=== PATIENT | male | born 1975 | race Caucasian/White ===

== ENCOUNTER 2024-01-10 05:13 | Inpatient (IN) | payer OTHER, SELFPAY ==
[2024-01-09 23:56] VITALS: BP 170/102
[2024-01-10 00:24] VITALS: BMI 31.1
--- NOTE | 2024-01-10 00:30 | ED.GENMED ---
History of Present Illness
General
Chief Complaint: Swelling
Source: patient
Exam Limitations: none
Time Seen by Provider: 01/10/24 00:09
Nursing documentation reviewed up to this point in time: agreed with
Travel History
Have you had any contact with someone who has COVID-19?: No
Do you have any symptoms of coronavirus? Fever > 100 degrees, chills, cough, shortness of breath, sore throat, loss of taste or smell, muscle aches, or headache?: No
History of Present Illness
History of Present Illness:
Patient states he had 2 dental extractions ot left lower jaw 1.5 months ago. 2 weeks ago he developed swelling to left lower jaw. He was evaluated by his oral surgeon who did not feel this was related to his recent surgery. Advised to follow up
with ENT. He has not been able to get an appointment for ENT. Came to ED for eval. He denies fever/chills, n/v/d. No difficulty breathing or swallowing. No prior history of same.
Past History
Past History
ED Past Medical History: HTN
ED Past Surgical History: Other (recent dental extractions)
Review of Systems
Review of Systems
Allergies reviewed?: Yes
All Other Systems: ROS reviewed and negative except as documented in HPI and ROS
Constitutional: Reports no symptoms
EENT: Reports other (Swelling to left lower jaw. No trismus. )
Respiratory: Reports no symptoms
Cardiac: Reports no symptoms
ABD/GI: Reports no symptoms
: Reports no symptoms
Musculoskeletal: Reports no symptoms
Skin: Reports other (swelling to left lower jaw)
Neurological: Reports no symptoms
Psychiatric: Reports no symptoms
Phy Exam
General Physical Exam
General Presentation: well appearing
General age: appears stated age
General Skin: warm and dry
General Habitus: normal
General Mental: alert
ENT Exam
ENT Exam: EOMI, TM's normal, pharynx normal, swallowing well and other (Large area of swelling left lower jaw, Parotitis vs abscess)
Musculoskeletal Exam
Musculoskeletal Exam: full ROM and neuro vasc intact
Skin Exam
Skin Exam: normal color, warm/dry, no rash and other (Large area of swelling left lower jaw)
Psychiatric Exam
Psychiatric Exam: normal mood/affect
Scores
Heart Failure Risk
Heart Failure Risk Score: Not Applicable
Course
Orders/Labs/Results
Orders:
Orders
01/10/24 00:[address] [[address] Neck With Iv Contrast] Urgent
Comment:
Reason For Exam: swelling, pain left lower jaw
01/10/24 00:32
Complete Blood Count/With Diff Urgent
Comprehensive Metabolic Panel Urgent
01/10/24 02:47
Clindamycin 600 mg/50 ml [Cleocin] 600 mg in 50 ml IV NOW
01/10/24 03:04
Clindamycin 600 mg/50 ml [Cleocin] 600 mg in 50 ml IV NOW
01/10/24 05:02
Admit/Transfer Patient As Directed
Co-Sign Provider:
Level of Care: Inpatient admission
Assign to:: Medical/Surgical
Physician / Group: Dr. Francisco
Diagnosis: Left suppurative parotitis
Reason for Hospitalization: Patient with left jaw swelling and pain and found to have a parotid abscess.
Expected length of stay greater than two midnights?: Yes
ELOS- Estimated Length of Stay in days: 2
I certify the patient meets the requirements for IP care: Yes
01/10/24 05:03
Code Status As Directed
Resuscitation Status: Full Code
01/10/24 05:05
ENT CONSULT Routine
Consulting Provider: Dudley Belle
Was physician already notified: No
Reason for Consult: Parotitis with left parotid abscess eval
01/10/24 05:06
Consult Notification Routine
Specialty to Notify: ENT
Date consulting provider notified: 01/10/24
Time consulting provider notified: 07:02
Notified:: Provider
Comment: TT
Ketorolac [Toradol] 15 mg IV Q6HPRN PRN
Morphine Sulfate 2 mg IV Q4HPRN PRN
01/10/24 05:09
HydrALAZINE [Apresoline] 10 mg IV Q6HPRN PRN
01/10/24 05:15
0.9% Sodium Chloride 1000 ml [Nss] 1,000 ml IV 100 mls/hr
01/10/24 05:41
Blood Culture Q30M
EUGENIO Source: Blood/Venous
Specimen Description:
MRSA Screen Routine
EUGENIO Source: Nose
Specimen Description:
01/10/24 05:54
Blood Culture Q30M
EUGENIO Source: Blood/Venous
Specimen Description:
01/10/24 Breakfast
NPO
Allow oral meds: Yes
Allow clear liquids: No
Ampicillin/Sulbactam 3 G [Unasyn] 3 gm 0.9% Sodium Chloride 100 ml [Nss] 100 ml IV Q6H
01/10/24 06:25
Bisacodyl [Dulcolax] 10 mg RECTAL [id number] PRN
Docusate W/Senna [Senokot-S] 1 tablet PO BIDPRN PRN
Polyethylene Glycol Powder [Miralax] 17 grams PO DAILYPRN PRN
01/10/24 06:25
Activity As Directed
Activity Level: Out of Bed-Early Mobility
Pneumatic Compression Sleeves As Directed
Type: Knee high
Vital Signs As Directed
Frequency: Per unit guidelines
DX Deep Vein Thrombosis Video Routine
01/10/24 07:37
Basic Metabolic Panel Routine
Complete Blood Count/With Diff Routine
Abnormal Lab Results
01/10/24
00:32
WBC 11.9 H 10^3/uL
(4.8-10.8)
RBC 4.52 L 10^6/uL
(4.70-6.10)
MCH 32.3 H pg
(27.0-31.0)
Abs Immat Gran (auto) 0.1 H 10^3/uL
(0-0.05)
Absolute Neuts (auto) 9.2 H 10^3/uL
(1.4-6.5)
Absolute Monos (auto) 0.8 H 10^3/uL
(0.1-0.6)
Neutrophils % 77.3 H %
(42.2-75.2)
Lymphocytes % 12.8 L %
(20.5-51.1)
Sodium 133 L mmol/L
(135-145)
Potassium 3.4 L mmol/L
(3.5-5.1)
Chloride 97 L mmol/L
(98-107)
Glucose 100 H mg/dl
(70-99)
Alkaline Phosphatase 132 H U/L
(38-126)
01/10/24 00:32
01/10/24 00:32
Vital Signs
Initial and Last Documented VS:
Initial Vital Signs
Temp Pulse Resp BP Pulse Ox
100 F 104 16 170/102 97
01/09/24 23:56 01/09/24 23:56 01/09/24 23:56 01/09/24 23:56 01/09/24 23:56
Last Documented Vital Signs
Temp Pulse Resp BP Pulse Ox
98.1 F 78 16 135/97 98
01/11/24 07:00 01/11/24 07:00 01/11/24 07:00 01/11/24 07:00 01/11/24 07:00
*Radiology
Radiology exam reviewed: radiology read reviewed
*Pulse Oximetry
Patient hypoxic: no
*Critical Care Note
Total Time (30-74mins, 75-104mins- exclusive of procedures): Not Applicable
Update Note
Update Note:
CT report reviewed with patient. Will admit to hospitalist service for parotid abscess. Clindamycin started in dept.
ED Attending Note
-
Portions of this chart may have been created with voice recognition software.� Occasional wrong word or��sound alike� substitutions may have occurred due to the inherent limitations of voice recognition software.
Discharge Plan
Departure
Patient Disposition: Admit
Date of Disposition: 01/10/24
Time of Disposition: 02:52
Presentation/result/management discussed w/ accepting MD/DO: Hospitalist
Patient with high blood pressure during this ER visit?: No
Condition: Fair
Covid-19: Not Applicable
Discharge Problem:
Parotid abscess
Interventions
Interventions:
*Risk Screen - Suicide Last Done: 01/09/24 23:56
*General Assessment Last Done: 01/09/24 23:56
*Neglect/Abuse Screening Last Done: 01/09/24 23:56
ED- Fall Risk Assessment Last Done: 01/10/24 00:10
*ED COVID-19 Vaccine History Last Done: 01/10/24 06:27
*Nursing Disposition Last Done: 01/10/24 06:15
ED- Cardiac Assessment Last Done: 01/10/24 00:10
ED- Pulmonary Assessment Last Done: 01/10/24 00:10
ED-Skin Assessment Last Done: 01/10/24 00:10
Discharge Date and Time
Discharge Date/Time: 01/10/24 06:15
[2024-01-10 00:44] LABS: % Basophils 0.5 % (0-2); % Eosinophils 1.9 % (0-6); % Immature Granulocytes 0.4 % (0-0.5); % Lymphocytes 12.8 % (20.5-51.1); % Monocytes 7.1 % (1.7-9.3); % Neutrophils 77.3 % (42.2-75.2); Absolute Basophils 0.1 10^3/uL (0-0.2); Absolute Eosinophils 0.2 10^3/uL (0-0.7); Absolute Immature Granulocytes 0.1 10^3/uL (0-0.05); Absolute Lymphocytes 1.5 10^3/uL (1.2-3.4); Absolute Monocytes 0.8 10^3/uL (0.1-0.6); Absolute Neutrophils 9.2 10^3/uL (1.4-6.5); Hematocrit 41.7 % (39.0-52.0); Hemoglobin 14.6 g/dL (13.0-18.0); Mean Corpuscular Hgb 32.3 pg (27.0-31.0); Mean Corpuscular Volume 92.3 fL (80.0-94.0); Mean Platelet Volume 9.4 fL (7.4-10.4); Nucleated Red Blood Cells % 0 % (-); Platelet Count 252 10^3/uL (130-400); Red Blood Cell Count 4.52 10^6/uL (4.70-6.10); White Blood Cell Count 11.9 10^3/uL (4.8-10.8)
[2024-01-10 01:01] LABS: ALT (SGPT) 20 U/L (0-50); AST (SGOT) 37 U/L (17-59); Albumin 4.2 g/dl (3.5-5.0); Alkaline Phosphatase 132 U/L (38-126); Blood Urea Nitrogen 15 mg/dl (9-20); Calcium 9.3 mg/dl (8.4-10.2); Carbon Dioxide 26 mmol/L (22-30); Chloride 97 mmol/L (98-107); Estimated Creatinine Clearance > 125 ml/min; Glucose 100 mg/dl (70-99); Potassium 3.4 mmol/L (3.5-5.1); Sodium 133 mmol/L (135-145); Total Bilirubin 0.8 mg/dl (0.2-1.3); Total Protein 7.7 g/dl (6.3-8.2); eGFR > 60.00
[2024-01-10 02:15] VITALS: BP 143/100
--- NOTE | 2024-01-10 03:18 | HPS.HSE ---
Addendum entered and electronically signed by Caleb Francisco MD 01/12/24 09:08:
Correction- He does drink alcohol in a regular basis but has not drank any alcohol for several days prior to admission.
Original Note:
Family Physician
-
Family Physician: * NONE
Chief Complaint
-
Left jaw pain and swelling
History of Present Illness
Patient 48 years old male with history of hypertension and recent dental extraction from the left lower jaw came into the hospital with left jaw discomfort and swelling. He has been having swelling over the last 2 weeks progressively getting worse.
He went to see his oral surgeon who had prescribed him a round of antibiotics previously and advised him to follow-up with ENT as outpatient but he has not seen ENT yet therefore advised to come to the hospital. Patient continues to have swelling
in the left jaw area associated with some discomfort but not significant pain. Denies fevers or chills. Denies drooling, dysphagia, or trismus. Patient noticed bloody and purulent drainage few days ago. Denies nausea vomiting or diarrhea or
abdominal pain chest pain or shortness of breath. The ER, WBC 11.9, CT scan of the neck showed preliminary results of parotid abscess but pending definitive report. He was referred to hospitalist for further evaluation.
Medical History
Past Medical History
Past Medical History: Reports Other (Hypertension, recent dental extractions)
Past Surgical History: Reports Other (Dental extractions)
Social History
Tobacco: Non-smoker
Alcohol: None
Drug: None
Family History
Family History: Not pertinent
Allergies / Home Medications
Allergies reflects when Allergies were last updated in [facility].
Home Medications with original date entered in [facility]
Allergy/Medication List:
Allergies
Allergy/AdvReac Type Severity Reaction Status Date / Time
No Known Allergies Allergy Unverified 01/09/24 23:59
Review of Systems
-
A 12 point ROS was completed and negative except as noted: Yes
Physical Exam
Vital Signs
Vital Signs
Temp Pulse Resp BP Pulse Ox
100 F 82 16 143/100 98
01/09/24 23:56 01/10/24 02:15 01/10/24 02:15 01/10/24 02:15 01/10/24 02:15
Physical exam:
General: Acutely ill
HEENT: Significant swelling of left parotid area and firm on palpation. Normocephalic, Atraumatic and Dry Mucous Membranes
Respiratory: Clear to Auscultation; Negative Wheezes, Rales or Rhonchi
Cardiac: Regular Rhythm and S1/S2
GI: Soft, Nontender and Nondistended
Musculoskeletal: No Clubbing, No Cyanosis and No Edema
Neuro: Awake, Alert and Oriented
Psych: Calm
Physical Exam
General: Other
Laboratory Results
-
01/10/24 00:32
01/10/24 00:32
Laboratory Results
Total Bilirubin 0.8 mg/dl (0.2-1.3) 01/10/24 00:32
AST 37 U/L (17-59) 01/10/24 00:32
ALT 20 U/L (0-50) 01/10/24 00:32
Alkaline Phosphatase 132 U/L (38-126) H 01/10/24 00:32
Data Reviewed
-
CT Scan: Image Personally Visualized and interpreted
Lab Data: Labs Reviewed by me
Impression/Plan
-
IMPRESSION:
Patient 48 years old male with history of hypertension came into the hospital with left jaw pain and swelling and found to have left parotid abscess. Patient at increased risk of morbidity and mortality due to acute presentation and if
complications arise then at risk of airway compromise if worsening in the parapharyngeal space and also increased risk of sepsis, venous thrombophlebitis, jaw osteomyelitis, bacteremia, nerve palsy, fistula, etc. Airway intact/stable at the moment.
He will need to be treated in the hospital and managed accordingly.
PLAN:
Suppurative parotitis with parotid abscess:
IV antibiotics, Unasyn and Vancomycin
Check MRSA swab and if negative can discontinue vancomycin
CT scan of the neck done but pending report.
IV fluids
Obtain blood cultures
Trend WBC and monitor airway and temperature curve
Pain control, Toradol or morphine as needed
Local care
Keep n.p.o. until seen by ENT in case needs any procedures
ENT consult
Hypertension:
Will add IV hydralazine as needed
Will restart his oral home medications once medication reconciliation completed
Monitor blood pressure and adjust medications accordingly.
DVT prophylaxis:
SCDs
CODE STATUS:
Full code
Time spent 75 minutes
[2024-01-10] MEDS: CLEOCIN 50 IV (03:26)
[2024-01-10 04:30] VITALS: BP 142/104
[2024-01-10] MEDS: NSS 1000 IV ×2 (05:46→16:28)
[2024-01-10 06:30] VITALS: BP 153/102; BMI 30.8
[2024-01-10] MEDS: VANCOCIN 540 MG IV (06:35)
[2024-01-10 07:55] VITALS: BP 138/93
--- NOTE | 2024-01-10 08:43 | PHA.VAN.IN ---
Assessment
- Assessment
Renal Function: Unknown baseline
Renal Function may be Overestimated due to: bmi>30
Concomitant Antimicrobials: ampicillin
AUC Dosing Plan
- Empiric Dosing
Initial / Loading Dose: 2000mg
Maintenance Regimen: 1250mg q12h
Estimated AUC (mcg*h/mL): 530
Estimated Peak (mcg*h/mL): 33.5
Estimated Trough (mcg/ml): 13.4
Estimated Half Life (H): 7.9
- Monitoring
No levels ordered at this time: consider at steady state
Pharmacokinetics Vancomycin I
- -
Patient Age: 48
Patient Sex: Male
Vancomycin Day #: 1
Indication: Eye Or Ent Infection
Requesting Provider: Dr. Francisco
Pertinent Antimicrobial Allergies:
nkda
Height / Weight:
Height 5 ft 9.5 in
Actual Weight 95.821 kg
IBW in k.9
Adjusted BW in k.4
- Vital Signs / Lab Results
Temp Pulse Resp BP Pulse Ox
98.4 F 85 19 138/93 98
01/10/24 07:55 01/10/24 07:55 01/10/24 07:55 01/10/24 07:55 01/10/24 07:55
Lab Results - Hematology
01/10/24
00:32
WBC 11.9 H
Lab Results - Chemistry
01/10/24
00:32
BUN 15
Creatinine 0.8
Estimated Creat Clear > 125
Albumin 4.2
[2024-01-10 08:50] LABS: % Basophils 0.5 % (0-2); % Eosinophils 1.7 % (0-6); % Immature Granulocytes 0.6 % (0-0.5); % Lymphocytes 6.9 % (20.5-51.1); % Monocytes 5.9 % (1.7-9.3); % Neutrophils 84.4 % (42.2-75.2); Absolute Basophils 0.1 10^3/uL (0-0.2); Absolute Eosinophils 0.2 10^3/uL (0-0.7); Absolute Immature Granulocytes 0.1 10^3/uL (0-0.05); Absolute Lymphocytes 0.9 10^3/uL (1.2-3.4); Absolute Monocytes 0.7 10^3/uL (0.1-0.6); Absolute Neutrophils 10.7 10^3/uL (1.4-6.5); Hematocrit 41.5 % (39.0-52.0); Hemoglobin 14.4 g/dL (13.0-18.0); Mean Corp Hgb Conc. 34.7 g/dL (33.0-37.0); Mean Corpuscular Hgb 32.7 pg (27.0-31.0); Mean Corpuscular Volume 94.1 fL (80.0-94.0); Mean Platelet Volume 9.7 fL (7.4-10.4); Nucleated Red Blood Cells % 0 % (-); Platelet Count 240 10^3/uL (130-400); Red Blood Cell Count 4.41 10^6/uL (4.70-6.10); Red Cell Dist. Width 13.1 % (11.5-14.5); White Blood Cell Count 12.6 10^3/uL (4.8-10.8)
[2024-01-10] MEDS: UNASYN IV ×3 (08:50→20:49)
[2024-01-10 09:14] LABS: Blood Urea Nitrogen 13 mg/dl (9-20); Carbon Dioxide 25 mmol/L (22-30); Chloride 97 mmol/L (98-107); Estimated Creatinine Clearance > 125 ml/min; Glucose 84 mg/dl (70-99); Potassium 3.3 mmol/L (3.5-5.1); Sodium 134 mmol/L (135-145); eGFR > 60.00
--- NOTE | 2024-01-10 11:58 | W.PN.HOSP.TC ---
Addendum entered and electronically signed by Brissa Hartmann MD 01/10/24 14:09:
discussed case with Dr. Tapia and MRI ordered to assess for mandibular osteo; patient updated
Original Note:
Today's Communication/Plan
-
see plan
Assessment / Plan
Assessment / Plan
Patient 48 years old male with history of hypertension came into the hospital with left jaw pain and swelling and found to have left parotid abscess.
IMPRESSION:
1. Findings as above most consistent with left mandibular osteomyelitis.
2. Left facial rim-enhancing collection measuring up to 3.1 cm in diameter most consistent with small abscess, either within or immediately adjacent parotid gland. Associated surrounding inflammatory changes with swelling/edematous change of the
left masseter muscle. There are enhancing subcentimeter likely reactive lymph nodes along the left face and neck.
3. Absent left maxillary lateral incisor and left mandibular molar. Abnormal lucency along left maxillary molar compatible with dental disease.
Suppurative parotitis with parotid abscess
Left Mandibualr Osteomyelitis reported on CT
-IV Vanc/Unasyn; F/U MRSA swab and stop Vanc if negative
-seen by ENT this AM s/p aspiration, F/U cultures
-Per ENT: Some concern there may still be some odontogenic infection, consider oral surgery consult. No one is reconciling clerk for OMFS this weekend. Team to call patient's surgeon Dr. Jeanette Dawson ([facility]).
-also discussing findings osteomyelitis with ID
-for now continue IV antibiotics
-diet OK (softer foods)
-IV Decadron per ENT
-pain control
Hypertension:
-need to confirm home meds .
DVT prophylaxis:
SCDs
CODE STATUS:
Full code
Anticipated Discharge: 24 - 48 hours
Subjective/Interval History
-
Date of Service: January 10, 2024
seen with ENT at bedside
patient having some soreness, swallowing OK
Objective Data
-
Labs:
Laboratory Results
01/10/24 01/10/24
00:32 07:37
WBC 11.9 H 12.6 H
Hgb 14.6 14.4
Hct 41.7 41.5
Plt Count 252 240
Sodium 133 L 134 L
Potassium 3.4 L 3.3 L
Chloride 97 L 97 L
Carbon Dioxide 26 25
BUN 15 13
Creatinine 0.8 0.7
Glucose 100 H 84
Calcium 9.3 9.0
Total Bilirubin 0.8
AST 37
ALT 20
Alkaline Phosphatase 132 H
Vital Signs:
Vital Signs
Temp Pulse Resp BP Pulse Ox
98.4 F 85 19 138/93 98
01/10/24 07:55 01/10/24 07:55 01/10/24 07:55 01/10/24 07:55 01/10/24 07:55
Review of Systems
-
History Source: Patient
All other systems: Reviewed and negative
Physical Exam
-
General: No Apparent Distress
HEENT: Other (left sided swelling along mandible)
Respiratory: Clear to Auscultation; Negative Wheezes
Cardiac: Regular Rhythm and S1/S2
GI: Soft and Nontender
Musculoskeletal: No Edema
Skin: Warm and Dry; Negative Rash
Neuro: AO x 3
Psych: Calm
Data Reviewed
-
Diagnostic Radiology: Report Reviewed by me
Labs: Labs Reviewed by me
--- NOTE | 2024-01-10 12:12 | CON.MD ---
Addendum entered and electronically signed by Dudley Belle MD 01/10/24 12:30:
Ginasyn probably has enough anaerobic coverage by itself
Original Note:
Consultation - Medical
-
48 yo c dental extraction about 1 mo ago, developed swelling around L jaw x few weeks
Was on antibiotics initially, but presented to ER as swelling got worse
Does vape, no DM, still has another maxillary tooth in need of treatment
Presently afebrile, mildly elevated WBC
Swelling and induration involving L parotid gland
Intraorally, there is some sl discolored drainage coming from Anton's duct
CT reviewed showing swelling involving L parotid and masseter space
Small area of hypodensity , possible phlegmon or abscess
L Parotitis / abscess
Possibly became blocked from vaping and intra oral inflammation /infection
Some concern there may still be some odontogenic infection, consider oral surgery consult
Certainly though there is infection within the gland as well
After local anesthesia, performed an aspiration and did obtain about 2 cc purulence
Sent for aerobic /anaerobic culture
Giving the drainage through Anton's duct, would expect this to drain and improve without additional incision
Would continue on antibiotics to cover Strep and staph, although may want to add anaerobic coverage such as Clindamycin
Would also treat with few doses of Decadron, IV and po hydration, warm compresses
[2024-01-10] MEDS: TORADOL 15 MG IV (13:52)
[2024-01-10] MEDS: DECADRON 6 MG IV ×2 (13:53→20:51)
[2024-01-10 15:45] VITALS: BP 121/78
[2024-01-10 23:00] VITALS: BP 150/86
[2024-01-11] MEDS: UNASYN IV ×4 (03:02→19:38)
[2024-01-11] MEDS: NSS 1000 IV ×2 (03:04→11:42)
[2024-01-11] MEDS: DECADRON 6 MG IV (05:04)
[2024-01-11] MEDS: VANCOCIN 275 MG IV (05:06)
[2024-01-11 07:00] VITALS: BP 135/97
[2024-01-11] MEDS: THIAMINE INJECTION 200 MG IV ×2 (08:08→19:38)
[2024-01-11] MEDS: FOLVITE 1 MG PO (08:08)
--- NOTE | 2024-01-11 13:19 | CON.ID ---
Consultation
-
Date/Time Consultation Requested: 01/10/2024 1355
Date/Time Consultation Performed: 01/11/2024 1300
Requesting Provider: Dr. Hartmann
Performing Provider: Dr. Tapia
Reason for Consultation: Parotid abscess; ?Mandibiular osteo
Chief Complaint / Past History
History of Present Illness
Ezra Diaz is a 48-year-old man being evaluated at request of Dr. Hartmann in regards to left-sided parotitis and possible mandibular osteo-. History is obtained from chart review, along with patient interview.
Patient reports recent odontogenic infection approximately 6 weeks ago, at which time he was on a course of antibiotics and extraction of a left mandibular tooth. He did well for several weeks and then 2 to 3 weeks ago he developed swelling of his
left face. He was seen in the dental office and advised evaluation by ENT but when he could not get an earlier appointment he came to the emergency room for further evaluation. In the ER he was found to have a leukocytosis. He was evaluated by
ENT yesterday, with drainage of approximately 2 cc of purulence.
At present, he notes improvement in the swelling of his left face area. He denies specific discomfort in the area of the left lower mandible. He denies fevers or chills.
Past History
Past Medical History: HTN
Allergy History:
No Known Allergies Allergy (Unverified 01/09/24 23:59)
Medications Reviewed: Yes
Current Antibiotics:
Unasyn
Vancomycin
Social History
Tobacco: Vaping
Alcohol: None
Drug: None
Employment: Employed
Family History
Family History: Not Pertinent
Review of Systems
Vital Signs
Temp Pulse Resp BP Pulse Ox
98.1 F 78 16 135/97 98
01/11/24 07:00 01/11/24 07:00 01/11/24 07:00 01/11/24 07:00 01/11/24 07:00
Physical Exam
Physical Exam
Constitutional: No Acute Distress, Comfortable and Non-toxic
Head: Normocephalic and Other (Left parotid swelling noted with overlying erythema.)
Eyes: Pupils Equal, Pupils Round, No Conjunctival Hemorrhage and Sclera Anicteric
Oral: No Thrush and No Ulcers
Cardiovascular: Regular Rate and S1/S2; Negative S3/S4
Pulmonary: Clear; Negative Wheezes, Rales or Rhonchi
Gastrointestinal: Non Tender, Non Distended and Normal Bowel Sounds
Skin: Warm and Dry; Negative Rash or Jaundice
Neurological: Awake and Alert
Psychological: Calm
Lab / Diagnostic Study Results
Abs Immat Gran (auto) 0.1 10^3/uL (0-0.05) H 01/10/24 07:37
Absolute Neuts (auto) 10.7 10^3/uL (1.4-6.5) H 01/10/24 07:37
Absolute Lymphs (auto) 0.9 10^3/uL (1.2-3.4) L 01/10/24 07:37
Absolute Monos (auto) 0.7 10^3/uL (0.1-0.6) H 01/10/24 07:37
Absolute Basos (auto) 0.1 10^3/uL (0-0.2) 01/10/24 07:37
Immature Gran % 0.6 % (0-0.5) H 01/10/24 07:37
Neutrophils % 84.4 % (42.2-75.2) H 01/10/24 07:37
Lymphocytes % 6.9 % (20.5-51.1) L 01/10/24 07:37
Monocytes % 5.9 % (1.7-9.3) 01/10/24 07:37
Eosinophils % 1.7 % (0-6) 01/10/24 07:37
Basophils % 0.5 % (0-2) 01/10/24 07:37
Microbiology Results
Micro:
01/10/24 13:01 Wound Culture - Preliminary
Face - Left Viridans Streptococcus Group
Gram Stain - Preliminary
01/10/24 05:41 MRSA Screen - Final
Nose No Methicillin Resistant Staphylococcus aureus isolated.
01/10/24 05:54 Blood Culture - Preliminary
Blood/Venous No Growth in 24 hours- Final report to follow
01/10/24 05:41 Blood Culture - Preliminary
Blood/Venous No Growth in 24 hours- Final report to follow
01/10/24 13:01 Anaerobic Culture - Pending
Face - Left
Imaging:
01/11/2024 MRI face/head/neck: Study performed; report pending.
Assessment / Plan
Left parotitis
Suspected left mandibular osteomyelitis
Recommendations:
Continue with Unasyn for the present. Further vancomycin can be discontinued.
Cultures currently reveal presence of strep viridans.
Await MRI, although findings on the CT scan may be secondary to recent dental extraction rather than osteomyelitis. Ultimately, may need evaluation by OMFS.
[2024-01-11 14:01] LABS: % Basophils 0.2 % (0-2); % Immature Granulocytes 0.8 % (0-0.5); % Lymphocytes 3.6 % (20.5-51.1); % Monocytes 4.4 % (1.7-9.3); Absolute Immature Granulocytes 0.1 10^3/uL (0-0.05); Absolute Lymphocytes 0.6 10^3/uL (1.2-3.4); Absolute Monocytes 0.7 10^3/uL (0.1-0.6); Absolute Neutrophils 15.1 10^3/uL (1.4-6.5); Hematocrit 38.9 % (39.0-52.0); Hemoglobin 14.1 g/dL (13.0-18.0); Mean Corp Hgb Conc. 36.2 g/dL (33.0-37.0); Mean Corpuscular Hgb 33.1 pg (27.0-31.0); Mean Corpuscular Volume 91.3 fL (80.0-94.0); Mean Platelet Volume 9.8 fL (7.4-10.4); Nucleated Red Blood Cells % 0 % (-); Platelet Count 257 10^3/uL (130-400); Red Blood Cell Count 4.26 10^6/uL (4.70-6.10); White Blood Cell Count 16.6 10^3/uL (4.8-10.8)
[2024-01-11 14:33] LABS: Blood Urea Nitrogen 10 mg/dl (9-20); Calcium 9.2 mg/dl (8.4-10.2); Carbon Dioxide 23 mmol/L (22-30); Chloride 103 mmol/L (98-107); Estimated Creatinine Clearance > 125 ml/min; Glucose 139 mg/dl (70-99); Magnesium 2.1 mg/dl (1.6-2.3); Potassium 3.5 mmol/L (3.5-5.1); Sodium 136 mmol/L (135-145); eGFR > 60.00
--- NOTE | 2024-01-11 14:54 | W.PN.HOSP.TC ---
Today's Communication/Plan
-
awaiting MRI results
IV Unasyn
appreciate consultants
Assessment / Plan
Assessment / Plan
Patient 48 years old male with history of hypertension came into the hospital with left jaw pain and swelling and found to have left parotid abscess. CT also with report of left mandibular osteomyelitis, awaiting on MRI results for confirmation.
IMPRESSION:
1. Findings as above most consistent with left mandibular osteomyelitis.
2. Left facial rim-enhancing collection measuring up to 3.1 cm in diameter most consistent with small abscess, either within or immediately adjacent parotid gland. Associated surrounding inflammatory changes with swelling/edematous change of the
left masseter muscle. There are enhancing subcentimeter likely reactive lymph nodes along the left face and neck.
3. Absent left maxillary lateral incisor and left mandibular molar. Abnormal lucency along left maxillary molar compatible with dental disease.
Suppurative parotitis with parotid abscess
Left Mandibualr Osteomyelitis reported on CT
-seen by ENT AM 01/09 s/p aspiration, follow up final cultures
-IV Unasyn
-s/p course IV Decadron
-F/U MRI results
-appreciate ENT and ID consults
-No one is collection card clerk for OMFS this weekend. Team to call patient's surgeon Dr. Jeanette Dawson ([facility]).
Hypertension:
-need to confirm home meds .
DVT prophylaxis:
SCDs
CODE STATUS:
Full code
Anticipated Discharge: 24 - 48 hours
Subjective/Interval History
-
Date of Service: January 11, 2024
swelling left jaw line significantly improved; can open mouth wider and eat more easily
no fevers/chills
overall stating he feels good
Objective Data
-
Labs:
Laboratory Results
01/11/24
13:48
WBC 16.6 H
Hgb 14.1
Hct 38.9 L
Plt Count 257
Sodium 136
Potassium 3.5
Chloride 103
Carbon Dioxide 23
BUN 10
Creatinine 0.6 L
Glucose 139 H
Calcium 9.2
Vital Signs:
Vital Signs
Temp Pulse Resp BP Pulse Ox
98.1 F 78 16 135/97 98
01/11/24 07:00 01/11/24 07:00 01/11/24 07:00 01/11/24 07:00 01/11/24 07:00
I&O
01/10/24 01/11/24 01/12/24
06:59 06:59 06:59
Intake Total 3220 / 3220
Balance 3220 / 3220
Review of Systems
-
History Source: Patient
All other systems: Reviewed and negative
Physical Exam
-
General: No Apparent Distress
HEENT: Other (left sided swelling along mandible much improved )
Respiratory: Clear to Auscultation; Negative Wheezes
Cardiac: Regular Rhythm and S1/S2
GI: Soft and Nontender
Musculoskeletal: No Edema
Skin: Warm and Dry; Negative Rash
Neuro: AO x 3
Psych: Calm
Data Reviewed
-
Diagnostic Radiology: Report Reviewed by me
Labs: Labs Reviewed by me
[2024-01-11 15:00] VITALS: BP 145/96
--- NOTE | 2024-01-11 16:11 | CM ---
Chart reviewed and patient lives alone in a 2 story home, patient is independent with adl's and ambulation, no dme, patient drives, patient does not have a primary care physician, patient has a prescription plan and uses [email or web address].
Plan; Home when stable, no needs.
[2024-01-11 23:43] VITALS: BP 136/98
[2024-01-12] MEDS: UNASYN IV ×4 (01:24→19:13)
[2024-01-12 07:00] VITALS: BP 143/106
--- NOTE | 2024-01-12 08:37 | W.PN.HOSP.TC ---
Today's Communication/Plan
-
IV Abx. OMS consult.
Assessment / Plan
Assessment / Plan
Physical exam:
General: Acutely ill
HEENT: Significant swelling of left parotid area and firm on palpation. Normocephalic, Atraumatic and Dry Mucous Membranes
Respiratory: Clear to Auscultation; Negative Wheezes, Rales or Rhonchi
Cardiac: Regular Rhythm and S1/S2
GI: Soft, Nontender and Nondistended
Musculoskeletal: No Clubbing, No Cyanosis and No Edema
Neuro: Awake, Alert and Oriented
Psych: Calm
A/P:
Patient 48 years old male with history of hypertension came into the hospital with left jaw pain and swelling and found to have left parotid abscess. CT also with report of left mandibular osteomyelitis, awaiting on MRI results for confirmation.
IMPRESSION:
1. Findings as above most consistent with left mandibular osteomyelitis.
2. Left facial rim-enhancing collection measuring up to 3.1 cm in diameter most consistent with small abscess, either within or immediately adjacent parotid gland. Associated surrounding inflammatory changes with swelling/edematous change of the
left masseter muscle. There are enhancing subcentimeter likely reactive lymph nodes along the left face and neck.
3. Absent left maxillary lateral incisor and left mandibular molar. Abnormal lucency along left maxillary molar compatible with dental disease.
Suppurative parotitis with parotid abscess
Left Mandibualr Osteomyelitis reported on CT
-seen by ENT AM 01/09 s/p aspiration, follow up final cultures
-IV Unasyn
-s/p course IV Decadron
-F/U MRI results
-appreciate ENT and ID consults
-Team to call patient's surgeon later on Dr. Jeanette Dawson ([facility]) but currently needs our OMS eval first.
-Maxillofacial consult placed in. OMS requests panoramic x-ray view and will see in AM.
Hypertension:
-need to confirm home meds .
Alcohol use disorder:
Started on alcohol withdrawal protocol
DVT prophylaxis:
SCDs
CODE STATUS:
Full code
Total time spent on today's encounter was 52 minutes which included time spent in counseling the patient/family regarding diagnosis and treatment plan as listed above, goals of care, and symptom management. Case was discussed with nursing staff,
specialists, and care coordinators/case management. All labs and imaging personally reviewed by me. Remainder the time spent in detailed review of previous records, lab data, imaging, and other medical provider documentation.
Anticipated Discharge: 24 - 48 hours
Subjective/Interval History
-
Date of Service: January 12, 2024
pte feels better overall, afebrile, still edema jaw area
Objective Data
-
Vital Signs:
Vital Signs
Temp Pulse Resp BP Pulse Ox
98.0 F 100 18 143/106 97
01/12/24 07:00 01/12/24 07:00 01/12/24 07:00 01/12/24 07:00 01/12/24 07:00
I&O
01/11/24 01/12/24 01/13/24
06:59 06:59 06:59
Intake Total 3220 / 3220 2160 / 2160
Balance 3220 / 3220 2160 / 2160
[2024-01-12] MEDS: THIAMINE INJECTION 200 MG IV ×2 (09:15→19:13)
[2024-01-12] MEDS: FOLVITE 1 MG PO (09:15)
--- NOTE | 2024-01-12 09:57 | CM ---
operations section manager continues to follow with patient progress and will follow for any medications or other needs that may develop.
Plan; To follow with patient progress.
--- NOTE | 2024-01-12 12:04 | W.PN.ENT ---
Today's Communication
-
may go home today
Impression / Plan
-
This is a dental infection, not parotid.
However, he is much better and does have dental f/u arranged as an outpatient.
From our point of view he may be discharged on PO's to cover strep virodans
Subjective Data
-
The patient feels much better; no more pain or difficulty eating
Objective Data
-
Vital Signs
Temp Pulse Resp BP Pulse Ox
98.0 F 100 18 143/106 97
01/12/24 07:00 01/12/24 07:00 01/12/24 07:00 01/12/24 07:00 01/12/24 07:00
Intake & Output
01/11/24 01/12/24 01/13/24
06:59 06:59 06:59
Intake:
Oral fluids 480 / 480 2160 / 2160
IV fluids (Total) 2500 / 2500
IV piggybacks 240 / 240
Other:
Number of approximated MODERATE 2 2
amounts of urine
Lab Results
01/11/24 13:48
01/11/24 13:48
Calcium 9.2 mg/dl (8.4-10.2) 01/11/24 13:48
Magnesium 2.1 mg/dl (1.6-2.3) 01/11/24 13:48
Total Bilirubin 0.8 mg/dl (0.2-1.3) 01/10/24 00:32
AST 37 U/L (17-59) 01/10/24 00:32
ALT 20 U/L (0-50) 01/10/24 00:32
Alkaline Phosphatase 132 U/L (38-126) H 01/10/24 00:32
On exam, no trismus
No purulent drainage and minimal external swelling.
Physical Exam
-
See above under objective data
--- NOTE | 2024-01-12 13:00 | W.PN.ID1 ---
Date of Service
Date of Service: January 12, 2024
Today's Communication
Continue abx.
Assessment / Plan
Left parotitis
Suspected left mandibular osteomyelitis
Recommendations:
Continue with Unasyn for the present.
Cultures from parotid area currently reveal presence of strep viridans.
Await further evaluation by OMFS. Patient may need biopsy of the area to confirm microbiologic diagnosis. Counseled that he may need prolonged course of IV antibiotics.
Chief Complaint
-: Other (mandibular osteomyelitis)
Subjective / Review of Systems
Patient seen and examined. Reports overall feeling improved. Left parotid discomfort almost completely resolved. No current trismus.
Vital Signs / Physical Exam
Vital Signs
Vital Signs
Temp Pulse Resp BP Pulse Ox
98.0 F 100 18 143/106 97
01/12/24 07:00 01/12/24 07:00 01/12/24 07:00 01/12/24 07:00 01/12/24 07:00
Physical Exam
Constitutional: No Acute Distress, Comfortable and Non-toxic
Eyes: Pupils Equal, Pupils Round, No Conjunctival Hemorrhage and Sclera Anicteric
Oropharyngeal: Other (Left parotid area remains swollen with some overlying erythema, but little tenderness.)
Cardiovascular: S1/S2; Negative S3/S4
Pulmonary: Non Labored
Neurological: Awake and Alert
Objective Data
Lab Data
Lab Results
01/11/24 13:48
01/11/24 13:48
Estimated Creat Clear > 125 ml/min 01/11/24 13:48
Total Bilirubin 0.8 mg/dl (0.2-1.3) 01/10/24 00:32
AST 37 U/L (17-59) 01/10/24 00:32
ALT 20 U/L (0-50) 01/10/24 00:32
Alkaline Phosphatase 132 U/L (38-126) H 01/10/24 00:32
Most recent labs reviewed.
Micro Results:
01/10/24 13:01 Anaerobic Culture - Preliminary
Face - Left Culture pending. Anaerobic cultures are examined after 3
days incubation. Additional information to follow.
01/10/24 13:01 Wound Culture - Preliminary
Face - Left Viridans Streptococcus Group
Gram Stain - Preliminary
01/10/24 05:54 Blood Culture - Preliminary
Blood/Venous No Growth in 48 hours- Final report to follow
01/10/24 05:41 Blood Culture - Preliminary
Blood/Venous No Growth in 48 hours- Final report to follow
01/10/24 05:41 MRSA Screen - Final
Nose No Methicillin Resistant Staphylococcus aureus isolated.
Imaging:
01/12/2024 PX Panelipse : Abnormal lucency throughout the left mandible with indistinct margins of the mandibular canal, findings most consistent with osteomyelitis and seen to better advantage on the recent prior CT examination.
01/11/2024 MRI orbit/face/neck without contrast:There is abnormal bone marrow signal intensity involving the left mandible. Abnormal signal predominantly involves the mandibular ramus and body, with diminished T1 and increased T2/inversion recovery
signal intensity replacement of the bone marrow. Abnormal signal extends predominantly from the level of the mandibular foramen along the course of the inferior alveolar canal, to the level of the mental foramen. Findings consistent with
osteomyelitis, as seen on prior CT examination. There appears to be cortical interruption along the outer margin of the proximal mandibular body, as well as a more focal approximately 1 cm rounded focal expansile component with advanced cortical
thinning and/or destruction involving the inferior margin of the mandibular ramus. Mild marrow edema/osteitis periosteal reaction is noted extending into the head of the mandible. No temporomandibular joint effusion.
01/10/2024 CT neck: 1. Findings as above most consistent with left mandibular osteomyelitis. 2. Left facial rim-enhancing collection measuring up to 3.1 cm in diameter most consistent with small abscess, either within or immediately adjacent
parotid gland. Associated surrounding inflammatory changes with swelling/edematous change of the left masseter muscle. There are enhancing subcentimeter likely reactive lymph nodes along the left face and neck. 3. Absent left maxillary lateral
incisor and left mandibular molar. Abnormal lucency along left maxillary molar compatible with dental disease.
[2024-01-12 15:40] VITALS: BP 147/99
[2024-01-12] MEDS: NICODERM TRANSDERMAL 21 MG TRANSDERM (19:31)
[2024-01-12] MEDS: ATIVAN 1 MG IV (19:32)
[2024-01-12 23:20] VITALS: BP 136/93
[2024-01-13] MEDS: UNASYN IV ×4 (01:38→19:24)
[2024-01-13 07:28] LABS: % Basophils 0.8 % (0-2); % Eosinophils 1.9 % (0-6); % Immature Granulocytes 0.9 % (0-0.5); % Lymphocytes 23.8 % (20.5-51.1); % Monocytes 12.7 % (1.7-9.3); % Neutrophils 59.9 % (42.2-75.2); Absolute Basophils 0.1 10^3/uL (0-0.2); Absolute Eosinophils 0.2 10^3/uL (0-0.7); Absolute Immature Granulocytes 0.1 10^3/uL (0-0.05); Absolute Lymphocytes 2.1 10^3/uL (1.2-3.4); Absolute Monocytes 1.1 10^3/uL (0.1-0.6); Absolute Neutrophils 5.4 10^3/uL (1.4-6.5); Hemoglobin 14.3 g/dL (13.0-18.0); Mean Corp Hgb Conc. 33.3 g/dL (33.0-37.0); Mean Corpuscular Hgb 32.4 pg (27.0-31.0); Mean Corpuscular Volume 97.3 fL (80.0-94.0); Mean Platelet Volume 10.3 fL (7.4-10.4); Nucleated Red Blood Cells % 0 % (-); Platelet Count 227 10^3/uL (130-400); Red Blood Cell Count 4.42 10^6/uL (4.70-6.10); Red Cell Dist. Width 13.2 % (11.5-14.5)
[2024-01-13 07:32] VITALS: BP 148/103
[2024-01-13 07:58] LABS: Blood Urea Nitrogen 13 mg/dl (9-20); Calcium 8.8 mg/dl (8.4-10.2); Carbon Dioxide 27 mmol/L (22-30); Chloride 103 mmol/L (98-107); Estimated Creatinine Clearance > 125 ml/min; Glucose 85 mg/dl (70-99); Potassium 4.7 mmol/L (3.5-5.1); Sodium 138 mmol/L (135-145); eGFR > 60.00
[2024-01-13] MEDS: NICODERM TRANSDERMAL 21 MG TRANSDERM (08:57)
[2024-01-13] MEDS: FOLVITE 1 MG PO (08:59)
[2024-01-13] MEDS: THIAMINE INJECTION 200 MG IV ×2 (08:59→19:25)
--- NOTE | 2024-01-13 08:59 | W.PN.HOSP.TC ---
Today's Communication/Plan
-
Plan for repeat CT scan today. Continue IV antibiotics.
Assessment / Plan
Assessment / Plan
Physical exam:
General: Acutely ill
HEENT: Significant swelling of left parotid area and firm on palpation. Normocephalic, Atraumatic and Dry Mucous Membranes
Respiratory: Clear to Auscultation; Negative Wheezes, Rales or Rhonchi
Cardiac: Regular Rhythm and S1/S2
GI: Soft, Nontender and Nondistended
Musculoskeletal: No Clubbing, No Cyanosis and No Edema
Neuro: Awake, Alert and Oriented
Psych: Calm
A/P:
Suppurative parotitis with parotid abscess and left mandibular osteomyelitis:
Left Mandibular Osteomyelitis reported on CT and MRI and Panoramic.
-seen by ENT AM 01/09 s/p aspiration, follow up final cultures. Cultures growing viridans Streptococcus.
-IV Unasyn
-s/p course IV Decadron
-Seen by ID and ENT.
-Oral maxillofacial surgery consulted and discussed with them today. They recommend repeat CT scan of the neck today and transfer to tertiary care center.
-Discussed with Del and he has been accepted at [facility] by Dr. Lerner ([facility]). Transfer paperwork completed.
Hypertension:
-need to confirm home meds . IV hydralazine as needed.
Alcohol use disorder:
Continue on alcohol withdrawal protocol but has not required benzodiazepines.
DVT prophylaxis:
SCDs
CODE STATUS:
Full code
Total time spent on today's encounter was 52 minutes which included time spent in counseling the patient/family regarding diagnosis and treatment plan as listed above, goals of care, and symptom management. Case was discussed with nursing staff,
specialists, and care coordinators/case management. All labs and imaging personally reviewed by me. Remainder the time spent in detailed review of previous records, lab data, imaging, and other medical provider documentation.
Anticipated Discharge: 24 - 48 hours
Subjective/Interval History
-
Date of Service: January 13, 2024
Patient feels worse today with more swelling and pain in the left jaw area. Afebrile.
Objective Data
-
Labs:
Laboratory Results
01/13/24
06:41
WBC 9.0
Hgb 14.3
Hct 43.0
Plt Count 227
Sodium 138
Potassium 4.7 D
Chloride 103
Carbon Dioxide 27
BUN 13
Creatinine 0.8
Glucose 85
Calcium 8.8
Vital Signs:
Vital Signs
Temp Pulse Resp BP Pulse Ox
97.3 F 70 16 148/103 96
01/13/24 07:32 01/13/24 07:32 01/13/24 07:32 01/13/24 07:32 01/13/24 07:32
I&O
01/12/24 01/13/24 01/14/24
06:59 06:59 06:59
Intake Total 2160 / 2160 630 / 630
Balance 2160 / 2160 630 / 630
--- NOTE | 2024-01-13 09:24 | CM ---
Chart reviewed and call placed to [facility] home infusion company to check and see if patient has a benefit for home infusion.
Plan; Checking on patient's benefits for home infusion.
--- NOTE | 2024-01-13 13:37 | W.PN.OMFS ---
Today's Communication
-
XXX
Assessment / Plan
-
WILL REQUIRE AGGRESSIVE RX TO LIKELY INCLUDE I AND D, DEBRIDEMENT, APPROPRIATE CULTURES, AND ANTIBIOTIC MANAGEMENT.
SUGGEST TRANSFER TO APPROPRIATE SERVICE AND INSTITUTION.
DISCUSSED WITH INFECTIOUS DISEASE, DR TRAVIS, WE AGREE
I DISCUSSED WITH PATIENT.
EVELYN BANUELOS, FAM
Subjective Data
-
FULL CONSULT TO BE DICTATED
CHART REVIEWED
CONVERSED WITH DR GREENE
Objective Data
-
Vitals, I&O and Lab Results:
Vital Signs
Temp Pulse Resp BP Pulse Ox
97.3 F 70 16 148/103 96
01/13/24 07:32 01/13/24 07:32 01/13/24 07:32 01/13/24 07:32 01/13/24 07:32
Intake and Output
01/12/24 01/13/24 01/14/24
06:59 06:59 06:59
Intake Total 2160 / 2160 630 / 630
Balance 2160 / 2160 630 / 630
Intake:
Oral fluids 2160 / 2160 630 / 630
Other:
Number of approximated MODERATE 2 2
amounts of urine
Lab Data
01/13/24 06:41
01/13/24 06:41
Plt Count 227 10^3/uL (130-400) 01/13/24 06:41
Microbiology
01/10/24 13:01 Anaerobic Culture - Preliminary
Face - Left Culture pending. Anaerobic cultures are examined after 3
days incubation. Additional information to follow.
01/10/24 05:54 Blood Culture - Preliminary
Blood/Venous No Growth in 72 hours- Final report to follow
01/10/24 05:41 Blood Culture - Preliminary
Blood/Venous No Growth in 72 hours- Final report to follow
Physical Exam
-
PERTINENT EXAM
INDURATED LEFT MASSETERIC AND PAROTID SWELLING CW ONGOING ABSCESS
CORRESPONDS TO CT FINDINGS
--- NOTE | 2024-01-13 15:13 | W.PN.ID1 ---
Date of Service
Date of Service: January 13, 2024
Today's Communication
Continue abx.
Assessment / Plan
Left parotitis
Left mandibular osteomyelitis
Recommendations:
Continue with Unasyn for the present.
Cultures from parotid area currently reveal presence of strep viridans.
Case discussed with OMFS.
Agree with need to transfer to a tertiary care center for further care of this complex case.
Will need biopsy, and possible debridement of the area.
Subsequent antibiotic therapy directed at recovered bacteria.
Counseled patient that he will likely need prolonged course of IV antibiotics.
Chief Complaint
-: Other (mandibular osteomyelitis)
Subjective / Review of Systems
Review of Systems: No Fever and No Chills
Vital Signs / Physical Exam
Vital Signs
Vital Signs
Temp Pulse Resp BP Pulse Ox
97.3 F 70 16 148/103 96
01/13/24 07:32 01/13/24 07:32 01/13/24 07:32 01/13/24 07:32 01/13/24 07:32
Physical Exam
Constitutional: No Acute Distress, Comfortable and Non-toxic
Eyes: Sclera Anicteric
Oropharyngeal: Other (Left parotid area remains swollen with some overlying erythema, but little tenderness.)
Pulmonary: Non Labored
Gastrointestinal: Non Distended
Extremities: Negative Cyanosis or Erythema
Neurological: Awake and Alert
Objective Data
Lab Data
Lab Results
01/13/24 06:41
01/13/24 06:41
Estimated Creat Clear > 125 ml/min 01/13/24 06:41
Total Bilirubin 0.8 mg/dl (0.2-1.3) 01/10/24 00:32
AST 37 U/L (17-59) 01/10/24 00:32
ALT 20 U/L (0-50) 01/10/24 00:32
Alkaline Phosphatase 132 U/L (38-126) H 01/10/24 00:32
Most recent labs reviewed.
Micro Results:
01/10/24 13:01 Anaerobic Culture - Preliminary
Face - Left Culture pending. Anaerobic cultures are examined after 3
days incubation. Additional information to follow.
01/10/24 05:54 Blood Culture - Preliminary
Blood/Venous No Growth in 72 hours- Final report to follow
01/10/24 05:41 Blood Culture - Preliminary
Blood/Venous No Growth in 72 hours- Final report to follow
01/10/24 13:01 Wound Culture - Preliminary
Face - Left Viridans Streptococcus Group
Gram Stain - Preliminary
01/10/24 05:41 MRSA Screen - Final
Nose No Methicillin Resistant Staphylococcus aureus isolated.
Imaging:
01/12/2024 PX Panelipse : Abnormal lucency throughout the left mandible with indistinct margins of the mandibular canal, findings most consistent with osteomyelitis and seen to better advantage on the recent prior CT examination.
01/11/2024 MRI orbit/face/neck without contrast:There is abnormal bone marrow signal intensity involving the left mandible. Abnormal signal predominantly involves the mandibular ramus and body, with diminished T1 and increased T2/inversion recovery
signal intensity replacement of the bone marrow. Abnormal signal extends predominantly from the level of the mandibular foramen along the course of the inferior alveolar canal, to the level of the mental foramen. Findings consistent with
osteomyelitis, as seen on prior CT examination. There appears to be cortical interruption along the outer margin of the proximal mandibular body, as well as a more focal approximately 1 cm rounded focal expansile component with advanced cortical
thinning and/or destruction involving the inferior margin of the mandibular ramus. Mild marrow edema/osteitis periosteal reaction is noted extending into the head of the mandible. No temporomandibular joint effusion.
01/10/2024 CT neck: 1. Findings as above most consistent with left mandibular osteomyelitis. 2. Left facial rim-enhancing collection measuring up to 3.1 cm in diameter most consistent with small abscess, either within or immediately adjacent
parotid gland. Associated surrounding inflammatory changes with swelling/edematous change of the left masseter muscle. There are enhancing subcentimeter likely reactive lymph nodes along the left face and neck. 3. Absent left maxillary lateral
incisor and left mandibular molar. Abnormal lucency along left maxillary molar compatible with dental disease.
Care Review
Plan reviewed with: Physician
Total Time Spent with Patient (in minutes): OMFS; Hospitalist
[2024-01-13 15:15] VITALS: BP 160/101
[2024-01-13 21:31] VITALS: BP 162/116
--- NOTE | 2024-01-14 09:03 | W.DCSUMMARY ---
Discharge Summary
Discharge Data
Date of Admission: 01/10/24
Date of Discharge: 01/13/24
-
Pending Results: No
Hospital Course
Patient 48 years old male with history of hypertension, alcohol use disorder, came into the hospital left mandibular swelling and pain. Patient had a dental extraction several weeks prior to his presentation and since then he has been experiencing
swelling and tenderness in his left jaw area. He was started on broad-spectrum IV antibiotics. ENT, ID, and oral maxillofacial surgery was consulted. He was on IV Unasyn and vancomycin. ID recommended to continue on IV Unasyn. He was started on
IV steroids by ENT and they did a local aspiration and 2 cc of purulent material came back that subsequently grew viridans streptococcus. His blood cultures remained no growth. He had CT scan of the neck that was repeated, MRI, and panoramic
x-rays and they confirmed the presence of osteomyelitis of the jaw as well abscess. Patient was placed on alcohol withdrawal protocol but he did not require any benzodiazepines and remained stable from that perspective. He was also placed on IV
hydralazine as needed for blood pressure control. Maxillofacial surgery recommended transfer to tertiary care center. I reached out to transfer center and discussed with oral maxillofacial surgeon Dr. Lerner and he graciously accepted him in
transfer for further evaluation and management at [facility]. Patient is being transferred soon as a bed is available.
Discharge duration: 35 minutes
Discharge Plan
-
Patient Disposition: Acute Care Hospital
Condition: Fair
Discharge Orders:
Discharge Patient (As Directed); Ordered 01/13/24
Ordered By: Britney Messina
Discharge Date and Time
Discharge Date/Time: 01/13/24 21:47
Print Language: WELSH
== END 2024-01-13 21:47 | disposition short-term general hospital (02) | DRG 158 ==
LOC: 4 WEST ACU 05:13
PROVIDERS: Nurse Practitioner; Student in an Organized Health Care Education/Training Program; ADMITTING PHYSICIAN Hospitalist; CONSULT PHYSICIAN Dentist Oral and Maxillofacial Surgery; CONSULT PHYSICIAN Internal Medicine Infectious Disease; CONSULT PHYSICIAN Otolaryngology; EMERGENCY PHYSICIAN Emergency Medicine
PROC: 0W9 Anatomical Regions, General, Drainage (ICD-10-PCS; 2024-01-10)
DX: M27.2 Inflammatory conditions of jaws (principal); K11.3 Abscess of salivary gland; I10 Essential (primary) hypertension; K11.20 Sialoadenitis, unspecified; B95.4 Other streptococcus as the cause of diseases classified elsewhere; F10.20 Alcohol dependence, uncomplicated; F17.290 Nicotine dependence, other tobacco product, uncomplicated; Z98.818 Other dental procedure status
CPT/HCPCS: 70355; 70491; 70540; 80048; 80053; 83735; 85025; 87040; 87070; 87075; 87205; 96365; 99285; Q9967